=== PATIENT | male | born 1955 | race Caucasian/White ===

== ENCOUNTER 2024-01-30 10:28 | Day surgery (SDC) | payer BC ==
[2024-01-29 09:07] VITALS: BMI 28.5
[~2024-01-30 10:28] MED LIST: MIDAZOLAM 2 MG/2 ML VIAL IV PRN
[2024-01-30] MEDS: LACTATED RINGERS 1,000 ML IV SCH (11:37)
[2024-01-30] MEDS: ACETAMINOPHEN TAB 500 MG TAB PO PRN (11:37)
[2024-01-30] MEDS: IV FLUID CONTINUATION 1,000 ML IV ONE (11:44)
[2024-01-30 11:45] LABS: HCT 46.2 % (39.0-53.0); HGB 15.2 gm/dL (13.0-17.5); MCH 31.6 pg (25.0-35.0); MCHC 32.8 g/dL (31.0-37.0); MCV 96.4 fL (80.0-100.0); Mean Platelet Volume 8.5; Platelet Count 232 k/uL (150-450); RDW 13.1 % (11.5-15.5); WBC 7.4 k/uL (3.8-10.6)
[2024-01-30] MEDS: DEXAMETHASONE SOD PHOSPHATE 4 MG/ML 1 ML VIAL IV ONE (11:48)
[2024-01-30] MEDS: ONDANSETRON 4 MG/2 ML VIAL IVP ONE (11:48)
[2024-01-30 12:01] LABS: African American GFR (CKD) 86 (>60 ml/min/1.73 sqM); Anion Gap 6 mmol/L; Blood Urea Nitrogen 25 mg/dL (9-20); Calcium 9.6 mg/dL (8.4-10.2); Carbon Dioxide 28 mmol/L (22-30); Chloride 103 mmol/L (98-107); Glucose 101 mg/dL (74-99); Non-African American GFR(CKD) 74 (>60 ml/min/1.73 sqM); Sodium 137 mmol/L (137-145)
[2024-01-30] MEDS: fentaNYL (PF) 50 MCG/ML 2 ML AMP IVP ONE (12:09)
[2024-01-30] MEDS: MIDAZOLAM 2 MG/2 ML VIAL IVP ONE (12:09)
[2024-01-30] MEDS: HEPARIN SODIUM,PORCINE 5,000 UNIT/ML 1 ML VIAL SQ PRN (12:24)
--- NOTE | 2024-01-30 12:36 | P.ANPRN ---
Procedure Note - Anesthesia - Nerve Block Performed Right Erector Spinae Single Time Out Performed: Yes (1208) Date of Procedure: 01/30/24 Procedure Start Time: 12:09 Procedure Stop Time: 12:15 Location of Patient: PreOp Indication: Acute Post-Operative Pain, Requested by Surgeon Specifically requested for management of pain by DrSusan: Andrew Fuller Sedation Type: Sedate with meaningful contact maintained Preparation: Sterile Prep Position: Supine Catheter: None Needle Types: Pajunk Needle Gauge: 21 Ultrasound used to visualize needle placement: Yes Ultrasound used to observe medication spread: Yes Injectate: 0.5% Ropivacaine (see comment for volume) (30cc) Blood Aspirated: No Pain Paresthesia on Injection Noted: No Resistance on Injection: Normal Image Stored and Saved: Yes Events: Uneventful and Well Tolerated
[2024-01-30] MEDS: TAMSULOSIN 0.4 MG CAP.ER.24H PO STA (13:13)
[2024-01-30] MEDS ORDERED: ROCURONIUM 10 MG/ML (5 ML VIAL) IV ONE (13:20)
[2024-01-30] MEDS ORDERED: ePHEDrine 50 MG/ML 1 ML VIAL ONE (13:20)
[2024-01-30] MEDS ORDERED: SUCCINYLCHOLINE CHLORIDE 200 MG/10 ML VIAL IV ONE (13:20)
[2024-01-30] MEDS ORDERED: GLYCOPYRROLATE 0.2 MG/ML 2 ML VIAL ONE (13:20)
[2024-01-30] MEDS ORDERED: KETOROLAC 15 MG/ML 1 ML VIAL ONE (13:20)
[2024-01-30] MEDS ORDERED: PROPOFOL 10 MG/ML 20 ML VIAL IV ONE (13:20)
[2024-01-30] MEDS ORDERED: NEOSTIGMINE 1 MG/ML 10 ML VIAL ONE (13:20)
[2024-01-30] MEDS ORDERED: LIDOCAINE 1% INJ 10MG/ML (20 ML MDV) ONE (13:20)
[2024-01-30] MEDS ORDERED: ROPIVACAINE 5 MG/ML 30 ML VIAL ONE (13:20)
[2024-01-30] MEDS ORDERED: fentaNYL (PF) 50 MCG/ML 2 ML AMP ONE (13:20)
[2024-01-30] MEDS: LACTATED RINGERS 1,000 ML IV ONE (14:55)
[2024-01-30] MEDS: BUPIVACAINE (PF) 0.25% 30 ML VIAL SQ ONE (15:11)
[2024-01-30 15:27] VITALS: TEMP 97.6
--- NOTE | 2024-01-30 15:30 | P.OP ---
Date of Procedure: 01/30/24 Procedure(s) Performed: PREOPERATIVE DIAGNOSIS: Incarcerated right inguinal hernia POSTOPERATIVE DIAGNOSIS: Large incarcerated right indirect inguinal hernia PROCEDURE: Open repair large indirect inguinal hernia with mesh SURGEON: Dr. Fuller ANESTHESIA: General EBL: 10 cc OPERATIVE PROCEDURE DETAILS: Patient was placed in the operating table in the supine position and placed under general anesthesia. An oblique incision was made in the right groin. Dissection down through the subcutaneous tissues took place using electrocautery. The external oblique fascia was incised using a scalpel. This opening was lengthened using the Metzenbaum scissors. The spermatic cord was encircled with a Germaine drain. The spermatic cord structures were identified and preserved. Careful dissection revealed a large indirect hernia sac. This was carefully dissected back to the internal inguinal ring where it was ligated using 3 separate 0 silk stick tie sutures. A 6" x 6" Prolene mesh was cut to fit on the exposed fascia. This was sutured to the pubic tubercle the folding edge of the inguinal ligament and the conjoined tendon using interrupted 0 Vicryl sutures. A slit was created in the mesh and the mesh was wrapped around the spermatic cord and sutured back to itself. The external oblique was then reapproximated using a running 2-0 Vicryl suture. The subcutaneous tissues were reapproximated using a 3-0 Vicryl sutures. The skin was closed using 4-0 Monocryl sutures. Skin glue and sterile dressings were then applied. TYPE OF MESH USED: Flat Prolene LOCATION OF MESH: [place] FIXATION: 0 Vicryl PREOPERATIVE DISCUSSION ON SMOKING CESSASTION: Yes PREOPERATIVE DISCUSSION ON MORBID OBESITY: Yes PREOPERATIVE DISCUSSION ON APPROPRIATE USE OF NARCOTIC USE: Yes PREOPERATIVE EDUCATION: Multi Modal, Smoking Cessation and Weight Loss with BMI over 35. DISPOSITION: Stable to recovery room
[2024-01-30 15:46] VITALS: RESP 16
[2024-01-30] MEDS: HYDROmorphone 0.5 MG/0.5 ML SYRINGE IVP PRN (15:49)
[2024-01-30 16:25] VITALS: BP 116/72; PULSE 74
[2024-01-30] MEDS ORDERED: ACETAMINOPHEN TAB 325 MG TAB PO SCH (18:00)
[2024-01-30] MEDS ORDERED: IBUPROFEN 600 MG TAB PO SCH (21:00)
== END 2024-01-30 18:26 ==
LOC: OR 10:28
PROVIDERS: ATTEND Surgery
DX: K40.30 Unilateral inguinal hernia, with obstruction, without gangrene, not specified as recurrent (principal); G89.18 Other acute postprocedural pain; I11.0 Hypertensive heart disease with heart failure; I50.9 Heart failure, unspecified; Z95.5 Presence of coronary angioplasty implant and graft; Z87.891 Personal history of nicotine dependence; Z79.899 Other long term (current) drug therapy; Z88.0 Allergy status to penicillin
CPT/HCPCS: 64999; 80048; 85027; 49507; C1781; J2250; J0330; J1644; J1100; J2710; J0690; J2405; J2003; J3010; J2795; J1885; J2704; J1171; J0665; J1596